=== PATIENT | male | born 2005 | race Two or more races ===

== ENCOUNTER 2025-07-12 21:47 | Emergency (ER) | payer MEDICAID, OTHER ==
[~2025-07-12] VITALS: Ht 167.6 cm; Wt 68.1 kg
--- NOTE | 2025-07-12 22:10 | ED.PDOC ---
Rosa. trauma (HPI) HPI Comments 19-year-old male who came to ER for left ankle pain. Patient drop of the emergency room. Noted swelling, hematoma and ecchymosis of the left lower leg and ankle. Complaining of back pains. Patient appears slightly confused. Slow to answer. States he jumped off the bridge last week and in the attempt to harm himself. No further information could be taken at this time of care Chief Complaint: Lower extremity Time Seen by MD: 22:09 Information Source: Patient Mode of Arrival: EMS Past Medical History PAST MEDICAL HISTORY: Pt Confused Surgical History: Pt Confused Family History Family History: Pt Confused Social History Smoker: Pt Confused Alcohol: Pt Confused Drugs: Pt Confused Lives In: Pt Confused Constitutional: denies: chills, diaphoresis, fatigue, fever, malaise, sweats, weakness, others EENTM: denies: blurred vision, double vision, ear bleeding, ear discharge, ear drainage, ear pain, ear ringing, eye pain, eye redness, hearing loss, mouth pain, mouth swelling, nasal discharge, nose bleeding, nose congestion, nose pain, photophobia, tearing, throat pain, throat swelling, voice changes, others Respiratory: denies: cough, hemoptysis, orthopnea, SOB at rest, shortness of breath, SOB with excertion, stridor, wheezing, others Cardiovascular: denies: chest pain, dizzy spells, diaphoresis, Dyspnea on exertion, edema, irregular heart beat, left arm pain, lightheadedness, palpitations, PND, syncope, others Gastrointestinal: denies: abdomen distended, abdominal pain, blood streaked bowels, constipated, diarrhea, dysphagia, difficulty swallowing, hematemesis, melena, nausea, poor appetite, poor fluid intake, rectal bleeding, rectal pain, vomiting, others Genitourinary: denies: burning, dysuria, flank pain, frequency, hematuria, incontinence, penile discharge, penile sore, pain, testicle pain, testicle swelling, urgency, others Neurological: denies: dizziness, fainting, headache, left sided numbness, left sided weakness, numbness, paresthesia, pre-existing deficit, right sided numbness, right sided weakness, seizure, speech problems, tingling, tremors, weakness, others Musculoskeletal: reports: others (left lower leg); denies: back pain, gout, joint pain, joint swelling, muscle pain, muscle stiffness, neck pain Integumetry: denies: bruises, change in color, change in hair/nails, dryness, laceration, lesions, lumps, rash, wounds, others Allergic/Immunocompromised: denies: Difficulty Healing, Frequent Infections, Hives, Itching, others Hematologic/Lymphatic: denies: anemia, blood clots, easy bleeding, easy bruising, swollen glands, others Endocrine: denies: excessive hunger, excessive sweating, excessive thirst, excessive urination, flushing, intolerance to cold, intolerance to heat, unexplained weight gain, unexplained weight loss, others Psychiatric: reports: suicidal; denies: anxiety, bipolar disorder, depression, hopeless, panic disorder, schizophrenia, sleepless, others Physical Exam General Appearance: No Apparent Distress, Normal HEENT: Normal ENT Inspection, Pharynx Normal, TMs Normal Neck: Full Range of Motion, Non-Tender, Normal, Normal Inspection Respiratory: Chest Non-Tender, Lungs Clear, No Accessory Muscle Use, No Respiratory Distress, Normal Breath Sounds Cardiovascular: No Edema, No JVD, No Murmur, No Gallop, Normal Peripheral Puls es, Regular Rate/Rhythm Breast Exam: Deferred Gastrointestinal: No Organomegaly, Non Tender, No Pulsatile Mass, Normal Bowel Sounds, Soft Genitalia: Deferred Pelvic: Deferred Rectal: Deferred Extremities: No calf tenderness, Normal capillary refill, Normal range of motion, No pedal edema, Slow capillary refill, Swelling (left lower leg) Musculoskeletal : Apperance: Normal Neurologic: Alert, curriculum manager II-XII nml as Tested, No Motor Deficits, Normal Affect, Normal Mood, No Sensory Deficits Cerebellar Function: Normal Reflexes: Normal Skin: Dry, Normal Color, Warm Lymphatic: No Adenopathy Was a procedure done? Was a procedure done?: Yes Sedation Sedation?: No Informed consent obtained: Yes Arterial Puncture Notes Left posterior short-leg, stirrup splint placed with good position. No changes in neurovascular status. Differential Diagnosis Multiple Trauma: Closed Head Injury, Fractures, Intraabdominal Injury, Hematoma X-Ray, Labs, Meds, VS Vital Signs Date Time Temp Pulse Resp B/P (MAP) Pulse Ox O2 Delivery O2 Flow Rate FiO2 07/12/25 22:10 98.3 89 22 123/64 97 98.3 Lab Test 07/12/25 22:28 Range/Units White Blood Count 6.6 4.4-10.8 10^3/uL Red Blood Count 4.64 4.5-5.90 10^6/uL Hemoglobin 13.2 L 13.5-17.5 g/dL Hematocrit 38.6 L 41.0-53.0 % Mean Corpuscular Volume 83.1 80.0-100.0 fL Mean Corpuscular Hemoglobin 28.4 28.0-32.0 pg Mean Corpuscular Hemoglobin Concent 34.2 32.0-36.0 g/dL Red Cell Distribution Width 13.7 11.8-14.3 % Platelet Count 121 L 140-450 10^3/uL Mean Platelet Volume 9.0 6.9-10.8 fL Neutrophils (%) (Auto) 69.7 37.0-80.0 % Lymphocytes (%) (Auto) 18.2 10.0-50.0 % Monocytes (%) (Auto) 11.3 0.0-12.0 % Eosinophils (%) (Auto) 0.6 0.0-7.0 % Basophils (%) (Auto) 0.2 0.0-2.0 % Neutrophils # (Auto) 4.6 1.6-8.6 10 ^3/uL Lymphocytes # (Auto) 1.2 0.4-5.4 10 ^3/uL Monocytes # (Auto) 0.7 0-1.3 10 ^3/uL Eosinophils # (Auto) 0 0-0.8 10 ^3/uL Basophils # (Auto) 0 0-0.2 10 ^3/uL Nucleated Red Blood Cells 0.2 % Sodium Level 136 136-145 mmol/L Potassium Level 3.6 3.5-5.1 mmol/L Chloride Level 98 98-107 mmol/L Carbon Dioxide Level 29 20-31 mmol/L Anion Gap 9 5-15 Blood Urea Nitrogen 15 9-23 mg/dL Creatinine 0.84 0.700-1.30 mg/dL Glomerular Filtration Rate Calc 127 >90 mL/min BUN/Creatinine Ratio 17.9 10.0-20.0 Serum Glucose 118 H 74-106 mg/dL Calcium Level 9.0 8.7-10.4 mg/dL Creatine Kinase 2125 H 46-171 U/L PROCEDURE(s): CS2 - CERVICAL WITHOUT CONTRAST REASON: INJURY ORDER NUMBER(s): [id number], ACCESSION NUMBER(s): [id number] CLINICAL HISTORY: INJURY TECHNIQUE: CT exam of the cervical spine was performed without intravenous contrast. This exam was performed according to our departmental dose optimization program. Up-to-date CT equipment and radiation dose reduction techniques are utilized as appropriate. CTDI 25.65 mGy DLP 685.32 mGy.cm COMPARISON: None FINDINGS: There is no acute displaced fracture. The intervertebral disc heights are maintained. No CT evidence of significant spinal canal or neural foraminal stenosis. The paraspinal soft tissues are unremarkable. IMPRESSION: 1. No acute displaced fracture. : CT THORACIC SPINE WO CONTRAS INDICATION: INJURY COMPARISON: None Technique: CT of the thoracic spine was performed without intravenous contrast. Dose: CTDIvol: 17.8 mGy, DLP: 705.6 mGy.cm Findings: There are mild acute compression fractures of the superior endplates of T11 and T12. There is no retropulsion. No CT evidence of significant spinal canal or neural foraminal stenosis. Intervertebral disc heights are maintained. The pa raspinal soft tissues are unremarkable. IMPRESSION: 1. Mild acute compression fractures of the superior endplates of T11 and T1No retropulsion. 2. Please see separately dictated CT lumbar spine for additional findings. : CT LS SPINE WO CONTRAST INDICATION: TRAUMA TECHNIQUE: Axial images of the lumbar spine have been obtained along with coronal and sagittal reformatted images. CT scans at this facility use dose modulation, iterative reconstruction, and/or weight based dosing when appropriate to reduce radiation dose to as low as reasonably achievable. COMPARISON: None CTDIvol: 19.9 mGy, DLP: 652.34 mGy.cm FINDINGS: The there is an acute displaced fracture transecting the anterior aspect of the L1 vertebral body. There is approximately 50% height loss anteriorly. There is minimal retropulsion. A nondisplaced fracture line extends through the L1 laminae. There is a nondisplaced fracture of the left L1 transverse process. The lumbar vertebral body heights are otherwise well-maintained. The alignment is maintained. There is no CT evidence of significant spinal canal or neural foraminal stenosis. The paraspinal soft tissues are unremarkable. IMPRESSION: 1. Acute L1 fractures as above without significant retropulsion. 2. Please see separately dictated CT thoracic spine for additional findings. T RADIOGRAPH Indication: injury Technique: Single frontal view of the chest was obtained Comparison: None FINDINGS/IMPRESSION: The lungs are clear. The cardiomediastinal silhouette is unremarkable. No pleural effusion or pneumothorax. No acute osseous abnormality. : CT HEAD WITHOUT CONTRAST INDICATION: altered TECHNIQUE: CT of the head without intravenous contrast. Radiation Dose : 1. Head: CT Dose: CTDI volume is 59.65 mGy. Dose-length product is 1075.35 mGy*cm The dose indicators for CT are the volume Computed Tomography (CT) Dose Index (CTDIvol) and the Dose Length Product (DLP), and are measured in units of mGy and mGy-cm, respectively. These indicators are not patient dose, but values generated from the CT scanner acquisition factors. The report includes radiation exposure data for exposures received during this examination. COMPARISON: None FINDINGS: The cerebral parenchyma appears to be normal configuration and attenuation. The ventricles, cisterns, and sulci appear age-appropriate. There is no evidence for acute territorial infarct, hemorrhage, or mass effect. The orbits are normal. The visualized paranasal sinuses and mastoid air cells are clear. The soft tissues and osseous structures appear within normal limits. IMPRESSION: 1. No acute territorial infarct, intracranial hemorrhage, or mass effect. Radiation optimization: All CT scans at this facility use at least one of these dose optimization techniques: automated exposure control mA and/or kV adjustment per patient size (includes targeted exams where dose is matched to clinical indication) or iterative reconstruction. Exam: CT CT AB PEL WO CON-NO ORAL OR IV History: injury Comparison Study: None TECHNIQUE: Multidetector CT of the abdomen and pelvis was performed from lung bases to pubic symphysis. Imaging was performed without IV contrast. Axial, coronal, and sagittal multiplanar reformats were obtained from the axial data set by the technologist. RADIATION DOSE: CTDI vol 5.3 mGy. DLP 314.04 mGy.cm Findings: Limited evaluation of the solid organs in the absence of IV contrast. Lungs: The lung bases are clear. Liver: Unremarkable. Spleen: Unremarkable. Pancreas: Unremarkable. Gallbladder: Unremarkable. Adrenals: Unremarkable Kidneys: Unremarkable. Pelvic Viscera: Unremarkable. Vasculature: Unremarkable. Retroperitoneum: Unremarkable. Bowel: No bowel obstruction. No CT evidence of appendicitis. Musculoskeletal: Please see separately dictated thoracic and lumbar CT for spinal fracture assessment. Soft tissues: Unremarkable Impression: 1. No acute abdominopelvic abnormality. 2. Please see separately dictated thoracic and lumbar CT for spinal fracture assessment. INATION: CT CT L ANKLE WO CONTRAST INDICATION: injury COMPARISON: None TECHNIQUE: CT of the left ankle was performed without contrast. Volume transverse images were obtained reconstructed in multiple planes using bone and soft tissue algorithms. FINDINGS: Moderately displaced severely comminuted fracture of the calcaneus. The ankle mortise is intact. Small nondisplaced fracture of the posterolateral margin of the talus. Moderate tibiotalar effusion and diffuse soft tissue swelling and edema. IMPRESSION: 1. Moderately displaced severely comminuted fracture of the calcaneus. 2. Small nondisplaced posterolateral talar fracture. 3. Tibiotalar joint effusion and diffuse soft tissue swelling. Time of 1ST Reevaluation: 22:05 Reevaluation 1ST: Unchanged Patient Education/Counseling: Diagnosis, Treatment Family Education/Counseling: No Family Present Comments This is a patient who reportedly jumped off a 30 ft bridge about four days ago. Reports left ankle leg pain. He also has back pain. He reports he had intended to commit suicide. However, he no longer feels suicidal. Patient has a T11, L1 fracture, without significant retropulsion of discs. Patient also has an elevated CPK. He also has numbness of the left foot, but no significant pain to touch or range of motion of the foot in the calf area. His calf is swollen and mildly bruised. The malleolus is swollen and bruised. The distal portion of the foot is warm to touch, with cap refill less than 2 seconds. In dorsalis pedis pulse is palpable. I am concerned for developing compartment syndrome. Patient also has multiple injuries due to trauma. He will need to be transferred to a trauma center. Dr. Hussein from [facility] accepted the transfer Due to concerns for patients condition deteriorating, the care required my highest level of attention and readiness to intervene. I assessed the patient, reviewed the medical records, ordered the appropriate tests and treatments, then reassessed for results and responsiveness. I communicated with medical personnel and consultants and formulated a plan of care. Total critical care time 65 mins excludes any procedures Departure 1 Departure Time of Disposition: 03:09 Impression: Primary Impression: Trauma Additional Impressions: Spine fracture Calcaneus fracture, left Talus fracture Disposition: 02 SHORT TERM HOSPITAL Condition: Serious Discharged With: Self Critical Care Note Critical Care Time?: Yes (55 min-critical care time only) Critical care comment: Due to concerns for patients condition deteriorating, the care required my highest level of attention and readiness to intervene. I assessed the patient, reviewed the medical records, ordered the appropriate tests and treatments, then reassessed for results and responsiveness. I communicated with medical personnel and consultants and formulated a plan of care. Total critical care time excludes any procedures Stability Stability form required: No Heart Score Heart Score: Heart Score Response (Comments) Value History N/A 0 EKG N/A 0 Age N/A 0 Risk Factors N/A 0 Troponin N/A 0 Total 0 I personally scribed for VANE WELLS MD (JESUS) on 07/12/25 at 22:10. Electronically submitted by Chetan Yi ([facility]). I personally scribed for VANE WELLS MD (JESUS) on 07/12/25 at 22:19. Electronically submitted by Chetan Yi ([facility]). I personally scribed for VANE WELLS MD (JESUS) on 07/12/25 at 23:15. Electronically submitted by Chetan Yi ([facility]). I personally scribed for VANE WELLS MD (JESUS) on 07/13/25 at 00:20. Electronically submitted by Chetan Yi ([facility]). I personally scribed for VANE WELLS MD (JESUS) on 07/13/25 at 00:25. Electronically submitted by Chetan Yi ([email or web address]). I personally scribed for VANE WELLS MD ([facility]) on 07/13/25 at 01:12. Electronically submitted by Chetan Yi ([email or web address]). VANE WELLS MD Jul 12, 2025 22:10
[2025-07-12] MEDS ORDERED: SODIUM CHLORIDE 0.9% 1,000 ML IV ONE (22:15)
[2025-07-12 22:53] LABS: Hematocrit 38.6 % (41.0-53.0); Hemoglobin 13.2 g/dL (13.5-17.5); Mean Corpuscular Hemoglobin 28.4 pg (28.0-32.0); Mean Corpuscular Volume 83.1 fL (80.0-100.0); Nucleated Red Blood Cells % 0.2 %
[2025-07-12 23:04] LABS: Chloride 98 mmol/L (98-107); Potassium 3.6 mmol/L (3.5-5.1)
[2025-07-12 23:05] LABS: Anion Gap 9 (5-15); Carbon Dioxide 29 mmol/L (20-31)
[2025-07-12 23:06] LABS: Calcium 9.0 mg/dL (8.7-10.4)
[2025-07-12 23:07] LABS: Sodium 136 mmol/L (136-145)
[2025-07-12 23:11] LABS: BUN/Creatinine Ratio 17.9 (10.0-20.0); Blood Urea Nitrogen 15 mg/dL (9-23)
[2025-07-12 23:17] LABS: Glucose 118 mg/dL (74-106)
[2025-07-12 23:24] LABS: Creatine Kinase IFCC 2125 U/L (46-171)
--- NOTE | 2025-07-12 23:55 | DVH ---
CHEST RADIOGRAPH Indication: injury Technique: Single frontal view of the chest was obtained Comparison: None FINDINGS/IMPRESSION: The lungs are clear. The cardiomediastinal silhouette is unremarkable. No pleural effusion or pneumothorax. No acute osseous abnormality.
--- NOTE | 2025-07-12 23:58 | DVH ---
EXAM: CT HEAD WITHOUT CONTRAST INDICATION: altered TECHNIQUE: CT of the head without intravenous contrast. Radiation Dose : 1. Head: CT Dose: CTDI volume is 59.65 mGy. Dose-length product is 1075.35 mGy*cm The dose indicators for CT are the volume Computed Tomography (CT) Dose Index (CTDIvol) and the Dose Length Product (DLP), and are measured in units of mGy and mGy-cm, respectively. These indicators are not patient dose, but values generated from the CT scanner acquisition factors. The report includes radiation exposure data for exposures received during this examination. COMPARISON: None FINDINGS: The cerebral parenchyma appears to be normal configuration and attenuation. The ventricles, cisterns, and sulci appear age-appropriate. There is no evidence for acute territorial infarct, hemorrhage, or mass effect. The orbits are normal. The visualized paranasal sinuses and mastoid air cells are clear. The soft tissues and osseous structures appear within normal limits. IMPRESSION: 1. No acute territorial infarct, intracranial hemorrhage, or mass effect. Radiation optimization: All CT scans at this facility use at least one of these dose optimization techniques: automated exposure control mA and/or kV adjustment per patient size (includes targeted exams where dose is matched to clinical indication) or iterative reconstruction.
--- NOTE | 2025-07-13 00:01 | DVH ---
CLINICAL HISTORY: INJURY TECHNIQUE: CT exam of the cervical spine was performed without intravenous contrast. This exam was performed according to our departmental dose optimization program. Up-to-date CT equipment and radiation dose reduction techniques are utilized as appropriate. CTDI 25.65 mGy DLP 685.32 mGy.cm COMPARISON: None FINDINGS: There is no acute displaced fracture. The intervertebral disc heights are maintained. No CT evidence of significant spinal canal or neural foraminal stenosis. The paraspinal soft tissues are unremarkable. IMPRESSION: 1. No acute displaced fracture.
--- NOTE | 2025-07-13 00:05 | DVH ---
Exam: CT CT AB PEL WO CON-NO ORAL OR IV History: injury Comparison Study: None TECHNIQUE: Multidetector CT of the abdomen and pelvis was performed from lung bases to pubic symphysis. Imaging was performed without IV contrast. Axial, coronal, and sagittal multiplanar reformats were obtained from the axial data set by the technologist. RADIATION DOSE: CTDI vol 5.3 mGy. DLP 314.04 mGy.cm Findings: Limited evaluation of the solid organs in the absence of IV contrast. Lungs: The lung bases are clear. Liver: Unremarkable. Spleen: Unremarkable. Pancreas: Unremarkable. Gallbladder: Unremarkable. Adrenals: Unremarkable Kidneys: Unremarkable. Pelvic Viscera: Unremarkable. Vasculature: Unremarkable. Retroperitoneum: Unremarkable. Bowel: No bowel obstruction. No CT evidence of appendicitis. Musculoskeletal: Please see separately dictated thoracic and lumbar CT for spinal fracture assessment. Soft tissues: Unremarkable Impression: 1. No acute abdominopelvic abnormality. 2. Please see separately dictated thoracic and lumbar CT for spinal fracture assessment.
--- NOTE | 2025-07-13 00:08 | DVH ---
EXAM: CT THORACIC SPINE WO CONTRAS INDICATION: INJURY COMPARISON: None Technique: CT of the thoracic spine was performed without intravenous contrast. Dose: CTDIvol: 17.8 mGy, DLP: 705.6 mGy.cm Findings: There are mild acute compression fractures of the superior endplates of T11 and T12. There is no retropulsion. No CT evidence of significant spinal canal or neural foraminal stenosis. Intervertebral disc heights are maintained. The paraspinal soft tissues are unremarkable. IMPRESSION: 1. Mild acute compression fractures of the superior endplates of T11 and T1No retropulsion. 2. Please see separately dictated CT lumbar spine for additional findings.
--- NOTE | 2025-07-13 00:14 | DVH ---
EXAM: CT LS SPINE WO CONTRAST INDICATION: TRAUMA TECHNIQUE: Axial images of the lumbar spine have been obtained along with coronal and sagittal reformatted images. CT scans at this facility use dose modulation, iterative reconstruction, and/or weight based dosing when appropriate to reduce radiation dose to as low as reasonably achievable. COMPARISON: None CTDIvol: 19.9 mGy, DLP: 652.34 mGy.cm FINDINGS: The there is an acute displaced fracture transecting the anterior aspect of the L1 vertebral body. There is approximately 50% height loss anteriorly. There is minimal retropulsion. A nondisplaced fracture line extends through the L1 laminae. There is a nondisplaced fracture of the left L1 transverse process. The lumbar vertebral body heights are otherwise well-maintained. The alignment is maintained. There is no CT evidence of significant spinal canal or neural foraminal stenosis. The paraspinal soft tissues are unremarkable. IMPRESSION: 1. Acute L1 fractures as above without significant retropulsion. 2. Please see separately dictated CT thoracic spine for additional findings.
[2025-07-13] MEDS ORDERED: SODIUM CHLORIDE 0.9% 1,000 ML IV ONE (00:45)
--- NOTE | 2025-07-13 00:56 | DVH ---
EXAMINATION: CT CT L ANKLE WO CONTRAST INDICATION: injury COMPARISON: None TECHNIQUE: CT of the left ankle was performed without contrast. Volume transverse images were obtained reconstructed in multiple planes using bone and soft tissue algorithms. FINDINGS: Moderately displaced severely comminuted fracture of the calcaneus. The ankle mortise is intact. Small nondisplaced fracture of the posterolateral margin of the talus. Moderate tibiotalar effusion and diffuse soft tissue swelling and edema. IMPRESSION: 1. Moderately displaced severely comminuted fracture of the calcaneus. 2. Small nondisplaced posterolateral talar fracture. 3. Tibiotalar joint effusion and diffuse soft tissue swelling.
--- NOTE | 2025-07-13 03:49 | DVH ---
CLINICAL INDICATION: injury TECHNIQUE: XY L TIB FIB XRAY Comparison: None FINDINGS/IMPRESSION: : Mildly displaced obliquely oriented proximal fibular diaphyseal fracture. Significantly displaced comminuted fracture of the anterior and middle calcaneal body. Soft tissues are unremarkable.
[2025-07-13 05:55] VITALS: BP 104/56; PULSE 70; RESP 16; TEMP 98.3; O2SAT 98
== END 2025-07-13 01:37 | disposition short-term general hospital (02) ==
LOC: ER 21:47 → EEVIPCON 21:47 → ER 22:10
DX: S32.008A Other fracture of unspecified lumbar vertebra, initial encounter for closed fracture (principal); S92.002A Unspecified fracture of left calcaneus, initial encounter for closed fracture; S92.102A Unspecified fracture of left talus, initial encounter for closed fracture; W17.89XA Other fall from one level to another, initial encounter; Y93.89 Activity, other specified; Y92.89 Other specified places as the place of occurrence of the external cause; Y99.8 Other external cause status
CPT/HCPCS: 29515; 36415; 70450; 71045; 72125; 72128; 72131; 73590; 73700; 74176; 80048; 82550; 85025; 99291